=== PATIENT | female | born 1945 | race Caucasian/White ===

== ENCOUNTER 2016-11-28 15:36 | Inpatient (IN) | payer MEDICARE ==
--- NOTE | ~2016-11-28 | CN ---
Consultation Report [facility] [address] [place]. [address] NAME: WILLY TAMAYO : 49 STATUS : ADM IN [facility]#: [id number] AGE: 71 ADM/REG DATE : 11/28/16 MR#: [id number] REPORT SERV DATE: 11/29/16 DICTATED BY: SAGE GALLEGOS DATE: 11/29/16 REPORT STATUS : Draft TRANSCRIBED BY: MODJb DATE: 11/29/16 NEUROLOGICAL EVALUATION-CONSULTATION DATE OF CONSULTATION: 11/29/2016 REASON FOR CONSULTATION: Worsening right-sided weakness, dysarthria, possible new stroke. HISTORY OF PRESENT ILLNESS: This is a 71-year-old female with known history of prior cerebrovascular accident with residual right-sided weakness, who presented with complaints of worsening weakness and slurring of her speech. The patient described that her symptoms started the day prior to admission, where she noted to be slightly dizzy and having difficulty pronouncing words. The patient also noted that her right leg weakness worsened that day. She waited the entire day and was eventually convinced by her to come to the emergency room. On admission, the patient's CT scan of the head was read as negative for acute changes. The patient was not a candidate for the tPA in view of the timing of presentation as compared to the onset of symptoms, which was close to 24 hours. PAST MEDICAL HISTORY: Significant for history of hypertension. The patient also was diagnosed with focal sclerosing glomerulonephritis, for which she was treated with Cytoxan and prednisone, and she is currently in remission. The patient has history of gout, history of diverticulosis, and in the past had some problems with possible diabetes mellitus related to prednisone use. As per patient presently, the patient does not have diabetes. PAST SURGICAL HISTORY: Appendectomy, cholecystectomy, bronchoscopy for questionable bronchiectasis. ALLERGIES: NO KNOWN ALLERGIES. MEDICATIONS: Prior to admission included lisinopril 5 mg once a day, Nexium 20 mg daily, Uloric 40 mg once a day, Toprol-XL 50 mg once a day and 81 mg of aspirin a day. The patient has not been on statins or Plavix in the past. REVIEW OF SYSTEMS: The patient stated that she had an upper respiratory infection prior to her coming to the hospital. For the past few days, she has had congestion and cough. Denied fever or chills or productive sputum. The patient stated that she was tested for allergies with skin test few days prior to admission. The patient upon questioning stated that she was indeed diagnosed with sleep apnea in the past. She had stopped using her CPAP, when she was switched to the oxygen by her primary physician. The rest of review of systems except for neurological symptoms, which the patient described and listed in history of present illness, were negative. The patient denied chest pain or shortness of breath. Denied loss of consciousness. Denied history of recent trauma or head injuries. Denied difficulty with her and GI system. Denied swelling in her legs, Consultation Report [place] [id number] [facility] [place]. [address] NAME: WILLY TAMAYO : 49 STATUS : ADM IN [facility]#: [id number] AGE: 71 ADM/REG DATE : 11/28/16 MR#: [id number] REPORT SERV DATE: 11/29/16 DICTATED BY: SAGE GALLEGOS DATE: 11/29/16 REPORT STATUS : Draft TRANSCRIBED BY: ELDON DATE: 11/29/16 however, has had arthritic pain in her right knee - chronic. The rest of 14 points of review of systems was negative. FAMILY HISTORY: Significant for history of heart disease in siblings, history of lung cancer negative in patient's father, lung cancer positive in patient's mother. PHYSICAL EXAMINATION: VITAL SIGNS: Blood pressure of 179/85. Prior to admission, the patient's blood pressure was elevated in the emergency room at 214/117, pulse was 58, respirations 16, temperature was 97.5. HEAD AND NECK: Showed head to be normocephalic. There was no evidence of trauma. Auscultation of the neck showed no evidence of bruits. EYES: Sclerae were not icteric. Conjunctivae were pink. ENT: Showed tongue to be midline. Normal size. Airway appeared small, Mallampati class 3- 4. Neck was supple. There is no Kernig or Brudzinski. Cervical range of motion was not impaired. CHEST: Symmetrical. LUNGS: Clear to auscultation. HEART: Regular S1, slightly increased second heart sound. No murmurs or rubs detected. ABDOMEN: Soft, nontender. No organomegaly. Bowel sounds are present. EXTREMITIES: Show no clubbing or cyanosis. There was no peripheral edema. Compression stocking was noted in the right distal leg. NEUROLOGICAL EXAMINATION: MENTAL STATUS EXAM: The patient was alert, oriented to self, time, and place. Her speech was minimally dysarthric. There was no aphasia. Thought content and mood were appropriate. The patient's memory testing distant and recent showed no evidence of deficits. The patient's mood and affect were appropriate. CRANIAL NERVE EXAMINATION 2 THROUGH 12: Visual quach on confrontation were intact. FUNDUSCOPIC: Showed no evidence of papilledema, hemorrhages, or exudates. No hemorrhages were observed. Pupils were 3 mm, equal, round, reactive to light and accommodation. Extraocular movements were full. There was no nystagmus, no limitation of upward or downward gaze was noted. FACIAL SENSATION: Muscles of mastication and muscles of facial expression show no evidence of asymmetry except for minimal weakness in the lower half of the right face. Lower cranial nerves were intact. Tongue was midline. No deviation of the tongue noted. Palate elevated symmetrically. Sternocleidomastoid and trapezius muscles were symmetrical and normal. MOTOR EXAM: Muscle bulk and tone appeared within normal range. Distal tone in the left leg was minimally increased, probably not clinically significant. Strength was 4+ over 5 in right arm and 4/5 in the right leg. The patient had minimal pronator drift on the right. DEEP TENDON REFLEXES: Absent in lower extremities. 1+ over 2 in upper extremities. SENSORY: Showed no evidence of significant deficits except for slightly decreased vibration distally in both lower extremities. No asymmetry. Two-point discrimination was normal. CEREBELLAR: Nqpwmg-ee-nawt and nbmr-zy-etqi showed mild ataxia with past-pointing and minimal ataxia out of proportion to weakness in the right bnhbwo-gj-bhdd and smqa-za-jcwx. The left pvpyjv-me-wryp and axxe-ry-pkuq were normal. Consultation Report [address] [place]. [address] NAME: WILLY TAMAYO : 49 STATUS : ADM IN [facility]#: [id number] AGE: 71 ADM/REG DATE : 11/28/16 MR#: [id number] REPORT SERV DATE: 11/29/16 DICTATED BY: SAGE GALLEGOS DATE: 11/29/16 REPORT STATUS : Draft TRANSCRIBED BY: MODL DATE: 11/29/16 GAIT: The patient's gait was hemiparetic on the right. LABORATORY STUDIES: Sodium 144, potassium 3.2, chloride 108, BUN 14, creatinine 1.11, glomerular filtration rate 59, glucose 85, calcium 8.6. WBC count 2.7, hemoglobin 11.8, hematocrit 36.7, platelet count 211,000. PT/INR 1.0. IMPRESSION: 1. Acute cerebrovascular accident involving left basal ganglia. The patient's MRI of the brain confirmed the presence of a new cerebrovascular accident. Appears to be small lacunar infarct. No evidence of hemorrhage noted. 2. Past history of previous cerebrovascular accident approximately three years ago with residual right-sided weakness. 3. Hypertensive urgency on admission. Since then, the patient appears to have stabilized her blood pressure. 4. History of glomerulonephritis, not clear of the origin. It stated the patient had focal sclerosing glomerulonephritis. 5. History of gout. 6. History of Cytoxan and prednisone. 7. Possible prolonged mild immunosuppression. The patient does have slightly decreased WBC count and also evidence of anergy to topical allergy testing, which was done in the last few days. 8. Obstructive sleep apnea. The patient has been noncompliant with use of CPAP as per the patient, is using oxygen as per recommendations of her primary physician. The patient was recommended to have this CPAP retitration study and the importance of use of CPAP to eliminate added risk factor for recurrent stroke was explained to the patient and her . RECOMMENDATIONS: In terms for the patient's acute stroke, we recommend the patient should probably be started on Plavix 75 mg with continued aspirin of 81 mg combination therapy. Recommend to obtain serum lipid panel and start a statin most appropriate for this patient. PT/OT, DVT prophylaxis. Follow stroke orders. The patient would be a good candidate for rehabilitation and outpatient PT and OT. The patient's appears to be quite supportive and participating in the patient's care. Outpatient Neurology followup, patient and family stroke education. The patient appears to be stable from the standpoint of the previous diagnosis of glomerulonephritis; however, would recommend to obtain sedimentation rate and C-reactive protein, and if elevated, collagen vascular screen may be helpful in directing the patient's future treatment. Vitamin D levels, vitamin B12, and folate can be tested either on inpatient or outpatient basis. Thank you for allowing me to participate in this patient's care. YINKA/ELDON Consultation Report [place] [address] [place]. [address] NAME: WILLY TAMAYO : 49 STATUS : ADM IN PAT#: [id number] AGE: 71 ADM/REG DATE : 11/28/16 MR#: [id number] REPORT SERV DATE: 11/29/16 DICTATED BY: SAGE GALLEGOS DATE: 11/29/16 REPORT STATUS : Draft TRANSCRIBED BY: ELDON DATE: 11/29/16 Sage Gallegos MD / [id number] CC: Serenity De Luna M.D.
--- NOTE | ~2016-11-28 | DS ---
Discharge Summary [facility] [address] [place]. [address] NAME: WILLY TAMAYO : 49 STATUS : DIS IN PAT#: [id number] AGE: 71 ADM/REG DATE : 11/28/16 MR#: [id number] REPORT SERV DATE: 12/06/16 DICTATED BY: ELIZABETH KEENE DATE: 12/05/16 REPORT STATUS : Draft TRANSCRIBED BY: MODL DATE: 12/05/16 ADMISSION DATE: 11/28/2016 DISCHARGE DATE: 12/05/2016 CONSULTANTS: Sage Gallegos MD, neurology. DISCHARGE DIAGNOSES: 1. Acute ischemic stroke, left basal ganglia. 2. Previous stroke, left middle cerebral artery, three years ago. 3. 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 4. Hypertension. 5. Previous steroid induced diabetes mellitus type 2. 6. Mild thrombocytopenia. 7. Obstructive sleep apnea with home CPAP. 8. History of gout. 9. History of supraventricular tachycardia in 2016. 10.History of diverticulitis in 2016. HISTORY: This patient had a prior stroke three years ago with some right-sided residual weakness. Then, on the day prior to admission, she noticed some slurring of speech and some worsening weakness on the right side and came to the emergency room. She was felt to be beyond the 3-hour window, so did not receive tPA. She was referred to our team for inpatient care. Imaging revealed CT scan of the brain with atrophy and left maxillary sinus mucous retention cyst. MRI of the brain on 11/29/2016 revealed acute small basal ganglia infarction. No hemorrhage. MRA of the brain reveals atherosclerotic changes in the mid basilar and petrous portion of the carotids, otherwise no abnormalities noted. Carotid ultrasound revealed no significant carotid stenosis on either side. The vertebrals had antegrade blood flow. Echocardiogram on 11/29/2016 showed left atrial enlargement of 4.2 cm, left ventricular ejection fraction 55%. Trace to mild mitral regurgitation. Negative bubble study. On 11/29 total cholesterol 149, HDL 45, LDL 61, triglycerides 216. She was assessed by Rehab and felt to need inpatient care those arrangements have been made. DISCHARGE MEDICATIONS: 1. Norvasc 10 mg daily, hold if systolic less than 110. 2. Aspirin 81 mg daily. 3. Lipitor 80 mg daily. 4. Plavix 75 mg daily. 5. Uloric 40 mg daily. 6. Lisinopril 10 mg daily. 7. Toprol-XL 50 mg twice a day, hold if pulse less than 55. 8. Meclizine 12.5 mg twice a day p.r.n. vertigo. 9. Nexium 20 mg daily p.r.n. heartburn. Discharge Summary [address] [place]. [address] NAME: WILLY TAMAYO : 49 STATUS : DIS IN PAT#: [id number] AGE: 71 ADM/REG DATE : 11/28/16 MR#: [id number] REPORT SERV DATE: 12/06/16 DICTATED BY: ELIZABETH KEENE DATE: 12/05/16 REPORT STATUS : Draft TRANSCRIBED BY: ELDON DATE: 12/05/16 10.Senokot two tablets at bedtime p.r.n. 11.Vitamin D 1000 units daily. 12.Vitamin B12 500 mcg daily. I spent 18 minutes today with the patient and with discharge planning. RSG/ELDON Elizabeth Keene M.D. / [id number] CC: Angel Otero, [facility] Damon Gill MD
--- NOTE | ~2016-11-28 | HP ---
History And Physical [place] [address] [facility] [place]. [address] NAME: WILLY TAMAYO : 49 STATUS : ADM IN [facility]#: [id number] AGE: 71 ADM/REG DATE : 11/28/16 MR#: [id number] REPORT SERV DATE: 11/28/16 DICTATED BY: AMINAH SALVADOR DATE: 11/28/16 REPORT STATUS : Draft TRANSCRIBED BY: ELDON DATE: 11/28/16 DATE OF ADMISSION: 11/28/2016 HISTORY OF PRESENT ILLNESS: Ms Tamayo is a 71-year-old female patient who was brought in by the as she complained of increasing weakness on the right side of the body, especially the right leg. The patient herself describes it as her entire body being pulled to the right side. This started happening yesterday. also states that her speech, which is already slightly slurred from a previous CVA that she has had about three years ago, was even more slurred and a little slow starting yesterday. The patient and her got worried that the patient may be having another CVA on the right side and decided to come into the ER. As mentioned above, the patient's chief complaints are increasing slowness and slurring of speech and increasing weakness in the right side of the body including the right arm and the right leg, more so the right leg causing her to have a clumsy gait and almost feeling like falling off to the right side. All this has been happening for the last one day. The patient has had a stroke before about three years ago that has left her with very minimal right-sided weakness, if at all any, and also very minimal slurred speech, if at all any. There is no dysphagia. No left arm or left leg weakness. No blurry vision. No trouble swallowing. No other problems. The patient is very functional at home and in fact did yard work up until two-three days ago. REVIEW OF SYSTEMS: Negative for blurry vision, trouble swallowing, chest pain, cough, shortness of breath, fever, nausea, vomiting, abdominal pain, dysuria, diarrhea, hematuria, etc. PAST MEDICAL HISTORY: Significant for: 1. CVA about three years ago that left her with minimal residual deficits on the right side including minimal slurring of speech as mentioned above. 2. Gout. 3. Hypertension. 4. History of acute diverticulitis. 5. History of SVT. 6. 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 7. Steroid-induced diabetes mellitus, diet controlled right now. 8. Hypertension as mentioned above. SOCIAL HISTORY: The patient does not smoke or drink or do any illegal drugs. The patient is and currently lives with her and is very functional including as mentioned above doing yard work by herself a few days ago. FAMILY HISTORY: Noncontributory for stroke. MEDICATIONS AND ALLERGIES: At home include the following; the patient has no known drug allergies. She takes the following medications at home; lisinopril 5 mg once a day, Antivert 12.5 mg History And Physical [address] [address] NAME: WILLY TAMAYO : 49 STATUS : ADM IN [facility]#: [id number] AGE: 71 ADM/REG DATE : 11/28/16 MR#: [id number] REPORT SERV DATE: 11/28/16 DICTATED BY: AMINAH SALVADOR DATE: 11/28/16 REPORT STATUS : Draft TRANSCRIBED BY: ELDON DATE: 11/28/16 once a day, Nexium 20 mg once a day, Uloric 40 mg once a day for gout, Toprol-XL 50 mg once a day for SVT, and 81 mg of aspirin. PAST SURGICAL HISTORY: Includes cholecystectomy, appendectomy, colonoscopy in 2008, and a bronchoscopy for questionable bronchiectasis that proved negative after bronchoscopy and biopsy. The patient tells me that she was told that she has a kidney disease that affects the lung too. However, at this time, the patient has no lung issues and is not on any oxygen at home. The patient does not have any kidney issues either and she states her kidney disease has resolved and is stable, and the patient used to be taking prednisone, which she states she still now takes off and on. PHYSICAL EXAMINATION: GENERAL: On examination, the patient is alert, oriented, is able to give her history herself. Speech is definitively slightly slurred and slow. HEENT: Mucous membranes appear moist. Skin appears moist. VITAL SIGNS: Show blood pressure of 180/87, temperature 97.9, pulse is 56 per minute, and respirations 16 per minute with O2 saturations 98% on room air. There is very mild facial droop noted on the right side, which according to the is chronic from the stroke that she had three years ago. NECK: There is no thyromegaly. CARDIOVASCULAR SYSTEM: S1 and S2 appreciated. Sinus rhythm. No murmurs, rubs, or gallops noted. RESPIRATORY SYSTEM: Clear lungs. No rales or rhonchi noted. ABDOMEN: Soft, nontender, and nondistended. Bowel sounds are appreciated. There is no organomegaly or hepatosplenomegaly noted. EXTREMITIES: There is no pedal edema. Pedal pulses are well felt. There are no acute redness or swelling in any of the major joints. PSYCHIATRIC: Normal affect. NEUROLOGICAL: There is definitive slurring of speech and slight right facial droop. There is very minimal right arm weakness with strength 4/6 in the right arm, tub tender strength is normal, both sides. However, the majority of weakness is in her right leg. The patient is barely able to lift her right leg. She does so against gravity, but there is definite clumsiness when she lifts the right leg up against gravity and there is weakness. LABORATORY DATA: 1. Labs that I have on this patient include a CBC that shows a WBC count of 3.1, otherwise, normal. Pro-time normal. INR normal. CMP shows slightly low potassium. BUN is 14 and creatinine is 1.3, which is chronic. Albumin is 3.2. LFTs are essentially normal except for some very slight elevation in AST to 54. Troponin I is normal. 2. Chest x-ray, PA and lateral view shows no evidence of any acute disease. Lungs are clear, but there is evidence of prior granulomatous exposure. 3. Brain CT scan without contrast shows no acute intracranial abnormality, atrophy and chronic microvascular white matter ischemic changes, and left maxillary sinus retention cyst. Other than that, no acute findings. History And Physical [address] [address] NAME: WILLY TAMAYO : 49 STATUS : ADM IN [facility]#: [id number] AGE: 71 ADM/REG DATE : 11/28/16 MR#: [id number] REPORT SERV DATE: 11/28/16 DICTATED BY: AMINAH SALVADOR DATE: 11/28/16 REPORT STATUS : Draft TRANSCRIBED BY: ELDON DATE: 11/28/16 ASSESSMENT: 1. Increasing dysarthria/slurring of speech and increasing weakness on the right side, especially the right leg in a patient who has had cerebrovascular accident three years ago. Rule out another recurrent acute cerebrovascular accident. Hence, obtain MRI of the brain, MRA of the brain, and obtain Neurology consult. Start the patient on 325 mg of aspirin, add Plavix 75 mg with aspirin, this could be altered by Neurology if they wish that they just want to discontinue either the Plavix or lower the dose of aspirin. We will also start the patient on 80 mg of Lipitor once a day as she has never been on a statin. 2. We will keep her on deep venous thrombosis prophylaxis. 3. Other than that, we will basically watch for evolution of any new stroke in this patient and keep a very close watch. Regarding her other medications for hypertension, gout, etc., we will continue most of her home medications as she takes it. At this time, we will put her on a regular diet with some aspiration precautions. The patient, however, denies absolutely any dysphagia and actually watched her take sips of water without coughing or sputtering. We will follow the patient. TERELL/ELDON inah Salvador M.D. / [id number] CC: Aminah Salvador M.D.
--- NOTE | ~2016-11-28 | DS ---
Discharge Summary [facility] [address] [place]. [address] NAME: WILLY TAMAYO : 49 STATUS : ADM IN [facility]#: [id number] AGE: 71 ADM/REG DATE : 11/28/16 MR#: [id number] REPORT SERV DATE: 12/03/16 DICTATED BY: AMINAH SALVADOR DATE: 12/02/16 REPORT STATUS : Draft TRANSCRIBED BY: ELDON DATE: 12/02/16 ADMISSION DATE: 11/28/2016 DISCHARGE DATE: Date of tentative transfer to inpatient rehab is 12/03/2016. CONDITION: Condition of the patient so far is stable. DISPOSITION: Discharged to inpatient rehab for ongoing rehabilitation for an acute CVA that left the patient with increasing weakness in her right leg and increasing dysarthria. DIAGNOSES ON DISCHARGE: 1. Acute left basal ganglia cerebrovascular accident that has left the patient with increasing weakness on the right side and right hemiparesis, more weakness in the right leg than the right arm. The patient also has increasing dysarthria from the above. 2. Old cerebrovascular accident which had already left the patient with very mild dysarthria and very mild right-sided hemiparesis that had improved to almost complete normal neurological function up until this new stroke happened. 3. Hypertension, fairly well controlled. 4. 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 The patient was diagnosed with this immune-mediated kidney disease a few years ago and has been on immunosuppressants for that and currently is only on prednisone for that. This is stable at this time. Other than the above problems the patient is healthy otherwise. Other problems that are stable at this time also include gout, which is stable; history of diverticulitis, which is not an acute issue at this time; history of SVT, which has resolved. 5. 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 6. Diet-controlled diabetes mellitus only. BRIEF HOSPITAL COURSE: The patient is a very pleasant 71-year-old white female patient, who was admitted with signs and symptoms of increasing right-sided weakness more so of the right leg and also increasing dysarthria. She was brought in by for all the symptoms that worsened about one to two days ago before he brought her into the ER. The patient had already had an old CVA three years ago that had left her with very minimal neurological deficits, but did include minor dysarthria and very minor weakness in the right arm and right leg. However, the patient was extremely functional until now and was able to even do yard work. This new CVA now has left her with significant disability. The patient was admitted to the hospital. A CT scan of the brain, MRI, MRA was done. Neurological consult was promptly obtained. The patient was started on aspirin, Plavix, and statin per Neurology suggestion and also according to her LDL numbers. The patient was given supportive care and with PT and OT, she has been improving and doing extremely well even walking the hallway slowly with the help of a walker. Discharge Summary [address] [place]. [address] NAME: WILLY TAMAYO : 49 STATUS : ADM IN PAT#: [id number] AGE: 71 ADM/REG DATE : 11/28/16 MR#: [id number] REPORT SERV DATE: 12/03/16 DICTATED BY: AMINAH SALVADOR DATE: 12/02/16 REPORT STATUS : Draft TRANSCRIBED BY: ELDON DATE: 12/02/16 Her dysarthria has persisted, but has improved in the last few days. The patient's right leg is weaker than the left side. During this hospitalization, bubble echo study was done, and this shows no ASD or VSD and normal left ventricular ejection fraction at this time. MRI of the brain shows new left basal ganglia stroke which is responsible for the increasing weakness on the right side for this patient now. Other than that, there are no other significant findings in this patient, and she is being discharged to inpatient rehab for ongoing physical therapy, occupational therapy, and speech therapy. MEDICATIONS: She will be discharged on the following medications: Aspirin 81 mg once a day, Lipitor 40 mg once a day, Plavix 75 mg once a day. She will continue her Uloric 40 mg at bedtime and increase her lisinopril to 10 mg once a day. The patient will continue her home dose of metoprolol which is Toprol-XL 50 mg p.o. twice a day and we will also continue all her home supplements like vitamin D, vitamin B12, Nexium 20 mg once a day. The patient can continue taking Antivert 12.5 mg p.o. b.i.d. p.r.n. for dizziness. LABORATORY DATA: I have the following lab reports on this patient that are the most recent ones. These include a CBC on 12/01/2016 that shows a WBC count of 3.4, hemoglobin 12.7, hematocrit 39.1, and platelet count of 207. Her electrolyte profile shows normal sodium and potassium, BUN is 14, creatinine is 1.12 with a mild reduction in GFR to 50 mL/minute reflecting mild chronic kidney disease, stage I to II. Again this is from previous crescentic glomerulonephritis as mentioned above. As the patient has been on Rituxan therapy, her leukopenia could be explained by this also. However, the patient does not have any significant leukopenia at this time, only mild reduction in white blood cell count of 3.4. Otherwise, the patient has been doing extremely well, and I think she will improve with ongoing inpatient PT, OT, and ST. I have spent about 40 minutes in coordinating discharge care of this patient including face- to-face encounter and summarizing this entire discharge summary today. RRA/MODL inah Salvador M.D. / [id number] CC: Aminah Salvador M.D.
[2016-11-28 14:20] LABS: BASOPHILS 1.3 %; BASOPHILS ABSOLUTE 0.04 10/3/uL (0.0-0.16); EOSINOPHILS 3.5 %; EOSINOPHILS ABSOLUTE 0.11 10/3/uL (0.0-0.53); ER CBC TAT 0 Hrs 05 Mins; HEMATOCRIT 38.4 % (36.0-48.0); HEMOGLOBIN 12.6 g/dL (12.0-16.0); LYMPHOCYTES 47.5 %; LYMPHOCYTES ABSOLUTE 1.49 10/3/uL (0.67-4.30); MANUAL DIFF NO %; MEAN CORPUS HGB CONC 32.8 g/dL (32.0-36.0); MEAN CORPUSCULAR HEMOGLOB 27.4 pg (26.0-34.0); MEAN CORPUSCULAR VOLUME 83.5 fL (80-100); MEAN PLATELET VOLUME 9.8 fL (9.2-13.0); MONOCYTES 14.3 %; MONOCYTES ABSOLUTE 0.45 10/3/uL (0.21-1.20); NEUTROPHILS 33.4 %; NEUTROPHILS ABSOLUTE 1.05 10/3/uL (2.02-8.40); PLATELET COUNT 217 10/3/uL (150-400); RBC DISTRIBUTION WIDTH 14.8 % (12.0-16.0); WHITE BLOOD CELLS 3.1 10/3/uL (4.5-10.5)
[2016-11-28 14:27] LABS: PARTIAL THROMBO TIME 30.2 SEC (22.5-37.2)
[2016-11-28 14:35] LABS: BUN (BLOOD UREA NITROGEN) 14 MG/DL (6-23); CALCIUM, SERUM 8.8 MG/DL (8.5-10.4); CHLORIDE, SERUM 105 MMOL/L (96-112); CO2 (CARBON DIOXIDE) 29 MMOL/L (24-34); GFR AFRICAN AMERICAN 48 ML/MIN (>=60); GFR NON AFRICAN AMERICAN 42 ML/MIN (>=60); GLUCOSE, SERUM 91 MG/DL (60-99); POTASSIUM, SERUM 3.4 MMOL/L (3.5-5.3); SGOT(AST) 54 U/L (5-40); SGPT(ALT) 45 U/L (5-65); SODIUM, SERUM 143 MMOL/L (135-148); TROPONIN I <0.02 NG/ML (<0.05)
[2016-11-28 14:37] LABS: A/G RATIO 0.8 (0.7-1.9); ALBUMIN 3.2 G/DL (3.5-5.0); ALKALINE PHOSPHATASE 117 U/L (45-117); GLOBULIN 4.1 G/DL (2.5-4.1); TOTAL BILIRUBIN 0.7 MG/DL (0-1.2); TOTAL PROTEIN 7.3 G/DL (6.0-8.5)
[~2016-11-28 15:36] MED LIST: ASAB PO; AUG875 PO; BENTYL20 PO; CENTRUM TAB1 TAB PO; CYTOXAN; DRISDOL50000 UNT PO; FLORASTOR250 MG PO; HALF81 PO; LEVEMIR SC; LIPITOR40 PO; MAXZIDE PO; MCZ25 PO; MIRALAXPKT PO; NEXIUM40 PO; NORV10 PO; P10 PO; P20 PO; PREDNISONE; PREDNISONE2.5 MG PO; T PO; TOPXL50 PO; TYLENOL ARTH650 MG PO; ULORIC40 MG PO; VITD PO
[2016-11-28] MEDS ORDERED: VITAMIN D1000 UNI1 PO (16:46)
[2016-11-28] MEDS ORDERED: B12250T PO (16:47)
[2016-11-28] MEDS ORDERED: PRIN5 PO (16:47)
[2016-11-28] MEDS ORDERED: ULORIC40 MG PO (16:48)
[2016-11-28] MEDS ORDERED: MCZ125 PO (16:48)
[2016-11-28] MEDS ORDERED: NEXIUM20 M1 PO (16:48)
[2016-11-28] MEDS ORDERED: HALF81 PO (16:49)
[2016-11-28] MEDS ORDERED: TOPXL50 PO (16:49)
[2016-11-29 05:48] LABS: HEMATOCRIT 36.7 % (36.0-48.0); HEMOGLOBIN 11.8 g/dL (12.0-16.0); MEAN CORPUS HGB CONC 32.2 g/dL (32.0-36.0); MEAN CORPUSCULAR HEMOGLOB 26.1 pg (26.0-34.0); MEAN CORPUSCULAR VOLUME 81.2 fL (80-100); MEAN PLATELET VOLUME 10.3 fL (9.2-13.0); PLATELET COUNT 211 10/3/uL (150-400); RBC DISTRIBUTION WIDTH 14.9 % (12.0-16.0); RED CELL COUNT 4.52 10/6/uL (4.0-5.6); WHITE BLOOD CELLS 2.7 10/3/uL (4.5-10.5)
[2016-11-29 06:13] LABS: MANUAL DIFF YES %
[2016-11-29 06:14] LABS: BUN (BLOOD UREA NITROGEN) 14 MG/DL (6-23); CALCIUM, SERUM 8.6 MG/DL (8.5-10.4); CHLORIDE, SERUM 108 MMOL/L (96-112); CO2 (CARBON DIOXIDE) 28 MMOL/L (24-34); CREATININE 1.11 MG/DL (0.55-1.02); GFR AFRICAN AMERICAN 59 ML/MIN (>=60); GFR NON AFRICAN AMERICAN 51 ML/MIN (>=60); GLUCOSE, SERUM 85 MG/DL (60-99); POTASSIUM, SERUM 3.2 MMOL/L (3.5-5.3); SODIUM, SERUM 144 MMOL/L (135-148)
[2016-11-29 06:51] LABS: BAND NEUTROPHILS 2 %; EOSINOPHILS 5 %; EOSINOPHILS ABSOLUTE (CALC) 0.14 10/3/uL (0.0-0.53); LYMPHOCYTES 50 %; LYMPHOCYTES ABSOLUTE (CALC) 1.35 10/3/uL (0.67-4.30); MONOCYTES 11 %; NEUTROPHILS ABSOLUTE (CALC) 0.92 10/3/uL (2.02-8.40); PLATELET ESTIMATE ADQ (ADEQUATE); RBC MORPHOLOGY NORM (NORMAL); SEGMENTED NEUTROPHIL (0) 32 %; TOTAL NUCLEATED CELLS 100
[2016-11-29 14:57] LABS: CHOL/HDL RATIO(NOT ORDER) 3.3 (0-5); HDL CHOLESTEROL 45 MG/DL (> 49); LDL CHOLESTEROL 61 MG/DL (< 130); NON-HDL CHOLESTEROL 104 MG/DL (< 160); TRIGLYCERIDE 216 MG/DL (< 150)
[2016-11-29 14:58] LABS: CHOLESTEROL 149 MG/DL (< 200)
[2016-11-30 06:23] LABS: BASOPHILS 1.4 %; BASOPHILS ABSOLUTE 0.05 10/3/uL (0.0-0.16); EOSINOPHILS 2.5 %; EOSINOPHILS ABSOLUTE 0.09 10/3/uL (0.0-0.53); HEMOGLOBIN 12.4 g/dL (12.0-16.0); IMMATURE GRANULOCYTES 0.3 %; IMMATURE GRANULOCYTES ABSOLUTE 0.01 10/3/uL (0.0-0.11); LYMPHOCYTES 51.1 %; LYMPHOCYTES ABSOLUTE 1.81 10/3/uL (0.67-4.30); MANUAL DIFF NO %; MEAN CORPUS HGB CONC 32.6 g/dL (32.0-36.0); MEAN CORPUSCULAR HEMOGLOB 27.3 pg (26.0-34.0); MEAN CORPUSCULAR VOLUME 83.7 fL (80-100); MEAN PLATELET VOLUME 10.2 fL (9.2-13.0); MONOCYTES 11.3 %; NEUTROPHILS 33.4 %; NEUTROPHILS ABSOLUTE 1.18 10/3/uL (2.02-8.40); PLATELET COUNT 208 10/3/uL (150-400); RBC DISTRIBUTION WIDTH 14.6 % (12.0-16.0); RED CELL COUNT 4.54 10/6/uL (4.0-5.6); WHITE BLOOD CELLS 3.5 10/3/uL (4.5-10.5)
[2016-11-30 06:29] LABS: BUN (BLOOD UREA NITROGEN) 15 MG/DL (6-23); CALCIUM, SERUM 8.7 MG/DL (8.5-10.4); CHLORIDE, SERUM 108 MMOL/L (96-112); CO2 (CARBON DIOXIDE) 29 MMOL/L (24-34); CREATININE 1.24 MG/DL (0.55-1.02); GFR AFRICAN AMERICAN 51 ML/MIN (>=60); GFR NON AFRICAN AMERICAN 44 ML/MIN (>=60); GLUCOSE, SERUM 80 MG/DL (60-99); POTASSIUM, SERUM 3.4 MMOL/L (3.5-5.3); SODIUM, SERUM 144 MMOL/L (135-148)
[2016-12-01 07:01] LABS: BASOPHILS 1.2 %; BASOPHILS ABSOLUTE 0.04 10/3/uL (0.0-0.16); EOSINOPHILS 3.9 %; EOSINOPHILS ABSOLUTE 0.13 10/3/uL (0.0-0.53); HEMATOCRIT 39.1 % (36.0-48.0); HEMOGLOBIN 12.7 g/dL (12.0-16.0); IMMATURE GRANULOCYTES 0.3 %; IMMATURE GRANULOCYTES ABSOLUTE 0.01 10/3/uL (0.0-0.11); LYMPHOCYTES 46.6 %; LYMPHOCYTES ABSOLUTE 1.57 10/3/uL (0.67-4.30); MANUAL DIFF NO %; MEAN CORPUS HGB CONC 32.5 g/dL (32.0-36.0); MEAN CORPUSCULAR HEMOGLOB 27.2 pg (26.0-34.0); MEAN CORPUSCULAR VOLUME 83.7 fL (80-100); MEAN PLATELET VOLUME 10.3 fL (9.2-13.0); MONOCYTES 10.7 %; MONOCYTES ABSOLUTE 0.36 10/3/uL (0.21-1.20); NEUTROPHILS 37.3 %; NEUTROPHILS ABSOLUTE 1.26 10/3/uL (2.02-8.40); PLATELET COUNT 207 10/3/uL (150-400); RBC DISTRIBUTION WIDTH 14.7 % (12.0-16.0); RED CELL COUNT 4.67 10/6/uL (4.0-5.6); WHITE BLOOD CELLS 3.4 10/3/uL (4.5-10.5)
[2016-12-01 07:11] LABS: BUN (BLOOD UREA NITROGEN) 14 MG/DL (6-23); CALCIUM, SERUM 8.8 MG/DL (8.5-10.4); CHLORIDE, SERUM 107 MMOL/L (96-112); CO2 (CARBON DIOXIDE) 28 MMOL/L (24-34); CREATININE 1.12 MG/DL (0.55-1.02); GFR AFRICAN AMERICAN 58 ML/MIN (>=60); GFR NON AFRICAN AMERICAN 50 ML/MIN (>=60); GLUCOSE, SERUM 80 MG/DL (60-99); SODIUM, SERUM 144 MMOL/L (135-148)
== END 2016-12-05 14:37 | DRG 65 ==
LOC: ER 15:36 → 1SO 16:33
PROVIDERS: Emergency Medicine
DX: I63.9 Cerebral infarction, unspecified (principal); G81.91 Hemiplegia, unspecified affecting right dominant side; D69.6 Thrombocytopenia, unspecified; E09.9 Drug or chemical induced diabetes mellitus without complications; T38.0X5A Adverse effect of glucocorticoids and synthetic analogues, initial encounter; I12.9 Hypertensive chronic kidney disease with stage 1 through stage 4 chronic kidney disease, or unspecified chronic kidney disease; J47.9 Bronchiectasis, uncomplicated; N18.2 Chronic kidney disease, stage 2 (mild); R47.1 Dysarthria and anarthria; M10.9 Gout, unspecified; R29.810 Facial weakness; I16.0 Hypertensive urgency; K21.9 Gastro-esophageal reflux disease without esophagitis; I34.0 Nonrheumatic mitral (valve) insufficiency; G47.33 Obstructive sleep apnea (adult) (pediatric); G89.29 Other chronic pain; M25.561 Pain in right knee; Z79.82 Long term (current) use of aspirin; Z79.899 Other long term (current) drug therapy; Z86.73 Personal history of transient ischemic attack (TIA), and cerebral infarction without residual deficits
CPT/HCPCS: 70450; 70544; 70551; 71020; 80048; 80053; 80061; 84132; 84484; 85025; 85610; 85730; 92523-GN; 93005; 93306; 93880; 97110-GP; 97116-GP; 97162-GP; 97165-GO; 97530-GP; 97535-GO; 99285; A9270-GY; G8987-CK-GO; G8988-CI-GO